=== PATIENT | male | born 1995 | race Caucasian/White ===

== ENCOUNTER 2016-07-31 07:40 | Emergency (ER) | payer OTHER ==
--- NOTE | 2016-08-03 12:41 | ER ---
ADMIT: 07/31/2016 RM/LOC: ER [facility] MR#: [id number] [facility] [id number] [place], [place] [id number] ARETHA PINEDO [address] [address] Emergency Room Report SEX: M AGE: 20 : 1995 DATE: 07/31/2016 ADDENDUM: A 20-year-old white male coming in with kind of nonspecific symptoms. He was a little short of breath. He feels congested. He said he was weak. He fainted one time. Exam reveals just a very thin male in no acute distress. Chest x-ray, CBC, chemistry, were all negative. Urine is clear. Urine drug screen positive for marijuana. EKG nothing acute. TSH was negative as well. At this time, discharged him home. Recommend against using marijuana. Make sure his nutrition is up, and then follow up as needed. CONDITION ON DISCHARGE: Good. Winston Maradiaga MD/ [facility] JOB #: [id number] CC: Winston Maradiaga MD, Attending Physician Dash Tavarez MD, Family Physician
== END 2016-07-31 10:30 | disposition home or self-care (01) ==
LOC: ER 07:40
DX: R53.1 Weakness (principal); F12.90 Cannabis use, unspecified, uncomplicated; R06.02 Shortness of breath; F17.200 Nicotine dependence, unspecified, uncomplicated